=== PATIENT | male | born 1965 | race Caucasian/White ===

== ENCOUNTER 2020-07-15 12:00 | Emergency (ER) | payer SELFPAY ==
--- NOTE | 2020-07-15 12:44 | EDM.PDOC ---
ED HPI GENERAL MEDICAL PROBLEM - General Chief Complaint: Chest Pain Stated Complaint: CHEST PAIN Time Seen by Provider: 07/15/20 12:41 - History of Present Illness INITIAL COMMENTS - FREE TEXT/NARRATIVE: 55-year-old male presents the emergency room with chest pain. This pain is been going on and off for last 2 weeks. Is usually brought on by smoking. Today he was walking in [place] and noticed the pain coming back. At this time he has some mild chest pressure. Really no pain. Patient does not have a history of coronary artery disease. He is hypertensive initially when he arrives here and he has a strong smoking history. 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 The patient is unaware of his family history. The patient does smoke he is overweight. No history of diabetes he is never been diagnosed with hypertension or hyperlipidemia. Treatments MANAGER SOCIAL RESPONSIBILITY: Reports: Other (see below) Other Treatments MANAGER SOCIAL RESPONSIBILITY: asa Chest Pain Score (Numeric/FACES): 6 - Related Data Allergies Allergy/AdvReac Type Severity Reaction Status Date / Time No Known Allergies Allergy Verified 07/15/20 12:14 Home Meds: Home Meds Aspirin [Ecotrin EC] 162 mg PO DAILY 07/15/20 [History] Ibuprofen [Advil] 600 mg PO DAILY 07/15/20 [History] Nitroglycerin [Nitrostat] 0.4 mg SL ASDIRECTED PRN #1 bottle 07/15/20 [Rx] Past Medical History Musculoskeletal History: Reports: Arthritis, Back Pain, Chronic - Past Surgical History GI Surgical History: Reports: Appendectomy Social & Family History - Tobacco Use Tobacco Use Status *Q: Current Every Day Tobacco User Years of Tobacco use: 30 Packs/Tins Daily: 1 - Caffeine Use Caffeine Use: Reports: Coffee, Soda - Recreational Drug Use Recreational Drug Use: No ED ROS GENERAL - Review of Systems Review Of Systems: See Below Constitutional: Reports: No Symptoms HEENT: Reports: No Symptoms Respiratory: Reports: No Symptoms Cardiovascular: Reports: Chest Pain (Discomfort and pressure brought on with exertion). Denies: Dyspnea on Exertion, Edema GI/Abdominal: Reports: No Symptoms Musculoskeletal: Reports: No Symptoms Skin: Reports: No Symptoms ED EXAM, GENERAL - Physical Exam Exam: See Below Exam Limited By: No Limitations General Appearance: Alert, No Apparent Distress Head: Atraumatic, Normocephalic Neck: Normal Inspection, Supple, Non-Tender, Full Range of Motion Respiratory/Chest: No Respiratory Distress, Lungs Clear, Normal Breath Sounds Cardiovascular: Regular Rate, Rhythm, No Edema, No Murmur GI/Abdominal: Normal Bowel Sounds, Soft, Non-Tender, Other (He has abdominal obesity) Back Exam: Normal Inspection. No: CVA Tenderness (L), CVA Tenderness (R) Extremities: Normal Inspection, Non-Tender, No Pedal Edema Neurological: Alert, Oriented, Normal Cognition #1 Interpretation EKG Date: 07/15/20 Rhythm: NSR Rate (Beats/Min): 81 [place]: Normal QRS: Other (Late transition possible Q waves in lead III this could be artifact) ST-T: Normal (Artifact changes in the inferior leads otherwise unremarkable) QT: Normal Comparison: NA - No Prior EKG EKG Interpretation Comments: Abnormal EKG Course - Vital Signs Last Recorded V/S: Last Vital Signs Temp 36.3 C 07/15/20 12:13 Pulse 82 07/15/20 12:13 Resp 20 07/15/20 12:13 BP 165/89 H 07/15/20 13:09 Pulse Ox 99 07/15/20 12:13 - Orders/Labs/Meds Orders: Active Orders 24 hr Category Date Time Status Chest 1V Frontal [CR] Stat Exams 07/15/20 12:59 Taken Aspirin Med 07/15/20 13:15 Active 162 mg PO DAILY Nitroglycerin [Nitrostat] Med 07/15/20 13:03 Active 0.4 mg SL Q5M PRN Medication Orders Aspirin (Aspirin) 162 mg PO DAILY [facility] Last Admin: 07/15/20 13:10 Dose: 162 mg Documented by: MADY Nitroglycerin (Nitrostat) 0.4 mg SL Q5M PRN PRN Reason: Chest Pain Last Admin: 07/15/20 13:09 Dose: 0.4 mg Documented by: MADY Labs: Laboratory Tests 07/15/20 07/15/20 07/15/20 Range/Units 12:15 12:15 12:15 WBC 8.67 (4.23-9.07) K/mm3 RBC 5.16 (4.63-6.08) M/mm3 Hgb 16.5 (13.7-17.5) gm/dl Hct 48.7 (40.1-51.0) % MCV 94.4 H (79.0-92.2) fl MCH 32.0 (25.7-32.2) pg MCHC 33.9 (32.2-35.5) g/dl RDW Std Deviation 44.6 H (35.1-43.9) fL Plt Count 305 (163-337) K/mm3 MPV 9.9 (9.4-12.3) fl Neut % (Auto) 42.3 (34.0-67.9) % Lymph % (Auto) 40.7 (21.8-53.1) % Cherry % (Auto) 13.5 H (5.3-12.2) % Eos % (Auto) 3.1 (0.8-7.0) Baso % (Auto) 0.3 (0.1-1.2) % Neut # (Auto) 3.66 (1.78-5.38) K/mm3 Lymph # (Auto) 3.53 (1.32-3.57) K/mm3 Cherry # (Auto) 1.17 H (0.30-0.82) K/mm3 Eos # (Auto) 0.27 (0.04-0.54) K/mm3 Baso # (Auto) 0.03 (0.01-0.08) K/mm3 PT 10.9 (9.7-11.7) SECONDS INR 1.02 APTT 26 (22-31) SECONDS D-Dimer, Quantitative (0.19-0.50) mg/L Sodium 141 (136-145) mEq/L Potassium 4.1 (3.5-5.1) mEq/L Chloride 102 (98-107) mEq/L Carbon Dioxide 27 (21-32) mEq/L Anion Gap 16.1 H (5-15) BUN 13 (7-18) mg/dL Creatinine 1.1 (0.7-1.3) mg/dL Est Cr Clr Drug Dosing 75.88 mL/min Estimated GFR (MDRD) > 60 (>60) mL/min BUN/Creatinine Ratio 11.8 L (14-18) Glucose 96 (74-106) mg/dL Calcium 9.2 (8.5-10.1) mg/dL Total Bilirubin 0.5 (0.2-1.0) mg/dL AST 64 H (15-37) U/L ALT 118 H (16-63) U/L Alkaline Phosphatase 73 (46-116) U/L Troponin I < 0.017 (0.00-0.056) ng/mL Total Protein 8.3 H (6.4-8.2) g/dl Albumin 4.3 (3.4-5.0) g/dl Globulin 4.0 gm/dL Albumin/Globulin Ratio 1.1 (1-2) 07/15/20 Range/Units 12:15 WBC (4.23-9.07) K/mm3 RBC (4.63-6.08) M/mm3 Hgb (13.7-17.5) gm/dl Hct (40.1-51.0) % MCV (79.0-92.2) fl MCH (25.7-32.2) pg MCHC (32.2-35.5) g/dl RDW Std Deviation (35.1-43.9) fL Plt Count (163-337) K/mm3 MPV (9.4-12.3) fl Neut % (Auto) (34.0-67.9) % Lymph % (Auto) (21.8-53.1) % Cherry % (Auto) (5.3-12.2) % Eos % (Auto) (0.8-7.0) Baso % (Auto) (0.1-1.2) % Neut # (Auto) (1.78-5.38) K/mm3 Lymph # (Auto) (1.32-3.57) K/mm3 Cherry # (Auto) (0.30-0.82) K/mm3 Eos # (Auto) (0.04-0.54) K/mm3 Baso # (Auto) (0.01-0.08) K/mm3 PT (9.7-11.7) SECONDS INR APTT (22-31) SECONDS D-Dimer, Quantitative 0.43 (0.19-0.50) mg/L Sodium (136-145) mEq/L Potassium (3.5-5.1) mEq/L Chloride (98-107) mEq/L Carbon Dioxide (21-32) mEq/L Anion Gap (5-15) BUN (7-18) mg/dL Creatinine (0.7-1.3) mg/dL Est Cr Clr Drug Dosing mL/min Estimated GFR (MDRD) (>60) mL/min BUN/Creatinine Ratio (14-18) Glucose (74-106) mg/dL Calcium (8.5-10.1) mg/dL Total Bilirubin (0.2-1.0) mg/dL AST (15-37) U/L ALT (16-63) U/L Alkaline Phosphatase (46-116) U/L Troponin I (0.00-0.056) ng/mL Total Protein (6.4-8.2) g/dl Albumin (3.4-5.0) g/dl Globulin gm/dL Albumin/Globulin Ratio (1-2) Meds: Medications Generic Name Dose Route Start Last Admin Trade Name Freq PRN Reason Stop Dose Admin Aspirin 162 mg 07/15/20 13:15 07/15/20 13:10 Aspirin PO 162 mg DAILY [facility] Administration Nitroglycerin 0.4 mg 07/15/20 13:03 07/15/20 13:09 Nitrostat SL 0.4 mg Q5M PRN Administration Chest Pain Discontinued Medications Generic Name Dose Route Start Last Admin Trade Name Freq PRN Reason Stop Dose Admin Aspirin 162 mg 07/16/20 13:01 Aspirin PO 07/16/20 13:02 ONETIME ONE - Re-Assessments/Exams Free Text/Narrative Re-Assessment/Exam: 07/15/20 14:41 The patients chest pressure went away after a single nitro. Discussed the pros and cons of admission and the patient would like to go home. And I believe this is reasonable we will send him home have him continue a baby aspirin a day and start him on sublingual nitro as needed he will be scheduled for a outpatient stress test. The patient is urged to quit smoking. The patient is urged to follow-up in the clinic to get treatment for his blood pressure if indicated and be tested for glycemic abnormalities and hyperlipidemia. He will need to go to the clinic to get the results of the stress test. Departure - Departure Time of Disposition: 14:42 Disposition: Home, Self-Care 01 Clinical Impression: Angina pectoris, Chest pain Referrals: PCP,None [Primary Care Provider] - Forms: ED Department Discharge Additional Instructions: Return to the emergency room with any questions problems or worsening symptoms. You have been prescribed sublingual nitroglycerin. This is to be used for chest pain or chest pressure. You can take up to 3 doses every 5 minutes, 1 sublingual tablet every 5 minutes. If 3 doses did not alleviate your symptoms return to the emergency room immediately. I have put in an order for a outpatient stress test. They will call you to arrange this. It is essential that you get this test done. You will need to follow-up in the clinic for to get the results of this. I would like for you to follow-up in the clinic early this week for recheck anyway. The phone number is [phone] Sepsis Event Note (ED) - Evaluation Sepsis Screening Result: No Definite Risk - Focused Exam Vital Signs: Vital Signs Temp Pulse Resp BP BP Pulse Ox 07/15/20 13:09 165/89 H 07/15/20 12:13 36.3 C 82 20 189/112 H 99 - My Orders Last 24 Hours: My Active Orders 07/15/20 12:59 Chest 1V Frontal [CR] Stat 07/15/20 13:03 Nitroglycerin [Nitrostat] 0.4 mg SL Q5M PRN 07/15/20 13:15 Aspirin 162 mg PO DAILY - Assessment/Plan Last 24 Hours: My Active Orders 07/15/20 12:59 Chest 1V Frontal [CR] Stat 07/15/20 13:03 Nitroglycerin [Nitrostat] 0.4 mg SL Q5M PRN 07/15/20 13:15 Aspirin 162 mg PO DAILY
[2020-07-15] MEDS ORDERED: Nitroglycerin 0.4 MG Tab.SL SL PRN (13:03)
[2020-07-15] MEDS ORDERED: Aspirin 81 MG Tab.Chew PO SCH (13:15)
[2020-07-16] MEDS ORDERED: Aspirin 81 MG Tab.Chew PO ONE (13:01)
== END 2020-07-15 15:15 | disposition home or self-care (01) ==
LOC: JD.ED 12:00
DX: I20.9 Angina pectoris, unspecified (principal); M19.90 Unspecified osteoarthritis, unspecified site; F17.210 Nicotine dependence, cigarettes, uncomplicated; Z79.82 Long term (current) use of aspirin
CPT/HCPCS: 36415; 71045; 80053; 84484; 85025; 85379; 85610; 85730; 99285; A9270; 93010; 99284

== ENCOUNTER 2025-05-28 09:20 | Inpatient (IN) | payer MEDICAID ==
[2025-05-28 09:58] LABS: BASOPHILS ABSOLUTE AUTO 0.1 K/mm3 (0.0-0.2); BASOPHILS PERCENT AUTO 0.6 % (0.0-1.0); EOSINOPHILS ABSOLUTE AUTO 0.2 K/mm3 (0.0-0.4); EOSINOPHILS PERCENT AUTO 2.2 % (0.0-6.0); IMMATURE GRAN ABSOLUTE AUTO 0.03 K/mm3 (0.00-0.05); IMMATURE GRAN PERCENT AUTO 0.3 % (0.0-0.4); LYMPHOCYTES ABSOLUTE AUTO 1.8 K/mm3 (1.0-4.8); LYMPHOCYTES PERCENT AUTO 20.2 % (24.0-44.0); MEAN PLATELET VOLUME 10.0 fl (9.4-12.4); MONOCYTES ABSOLUTE AUTO 1.7 K/mm3 (0.0-0.8); MONOCYTES PERCENT AUTO 19.3 % (0.0-8.0); NEUTROPHILS ABSOLUTE AUTO 5.1 K/mm3 (1.8-7.7); NEUTROPHILS PERCENT AUTO 57.4 % (41.0-71.0); NRBC ABSOLUTE 0.00 (0.00-0.02); NRBC PERCENT 0.0 % (0.0-0.2); PLATELET COUNT,PLT 177 K/mm3 (150-400); RED BLOOD CELL COUNT 3.87 M/mm3 (4.52-5.90); WHITE BLOOD CELL COUNT,WBC 8.90 K/mm3 (3.9-11.3)
[2025-05-28 10:06] LABS: INR 1.79
[2025-05-28 10:21] LABS: A/G RATIO 0.3 (1-2); ALANINE AMINOTRANSFERASE,ALT 66.0 U/L (16-63); ASPARTATE AMNIOTRANSFERASE,AST 180.0 U/L (15-37); BILIRUBIN TOTAL 13.2 mg/dL (0.2-1.0); BLOOD UREA NITROGEN,BUN 9.0 mg/dL (7-18); CARBON DIOXIDE,CO2 32.0 mEq/L (21-32); CHLORIDE,CL 95.0 mEq/L (98-107); CREATINE KINASE,CK 102.0 U/L (39-308); EST CRCL DRUG DOSING (CG) 63.33 mL/min; ESTIMATED GFR 69.0 mL/min (>60); GAMMA GLUTAMYL TRANSFERASE,GGT 94.0 U/L (15-85); GLUCOSE RANDOM 96.0 mg/dL (70-99); SODIUM,NA 133.0 mEq/L (136-145); TROPONIN I HIGH SENSITIVITY 19.0 pg/mL (<=76)
[2025-05-28 10:23] LABS: BILIRUBIN DIRECT 8.7 mg/dl (0.0-0.2); CREATININE 1.2 mg/dL (0.7-1.3); POTASSIUM,K 2.7 mEq/L (3.5-5.1); PROTEIN TOTAL,TP 8.0 g/dl (6.4-8.2)
[2025-05-28 10:24] LABS: PRO B-TYPE NATRIUR PEPT,BNPPRO 183 pg/mL (0-125)
[2025-05-28 10:33] LABS: HEPATITIS C AB NON-REACTIVE (Non-React); HIV RAPID SCREEN RLFX COMFIRM NON-REACTIVE (Non-React)
[2025-05-28] MEDS: Magnesium Sulf/Wat 4 GM/50 mL 4 GM in Premix Bag 1 BAG IV ONE (10:47)
[2025-05-28] MEDS: Iopamidol 755 Mg/ML 100 ML Bottle IVPUSH ONE (10:54)
[2025-05-28] MEDS: Sodium Chloride 0.9% 10 ML Syringe FLUSH ONE (10:54)
[2025-05-28] MEDS: Potassium Chloride 20 MEQ Tab.ER PO ONE ×2 (15:10→20:03)
[2025-05-28 15:12] LABS: APPEARANCE,URINE SLT CLOUDY (Clear); GLUCOSE,URINE TRACE (Negative); OCCULT BLOOD,URINE NEGATIVE (Negative)
[2025-05-28 15:22] LABS: BUPRENORPHINE SCREEN,URINE NEGATIVE (CUTOFF=10); EPITHELIAL CELLS,URINE 0-5 /hpf (0-5); METHADONE SCREEN, URINE NEGATIVE (CUT0FF=200); METHAMPHETAMINES SCREEN, URINE NEGATIVE (CUTOFF=500); OXYCODONE SCREEN,URINE NEGATIVE (CUT0FF=100); THC SCREEN,URINE 20 NG/ML NEGATIVE (CUTOFF=50)
[2025-05-28 15:24] LABS: AMPHETAMINES SCREEN, URINE NEGATIVE (CUTOFF=500)
[2025-05-29 02:41] LABS: BASOPHILS ABSOLUTE AUTO 0.1 K/mm3 (0.0-0.2); BASOPHILS PERCENT AUTO 0.6 % (0.0-1.0); EOSINOPHILS ABSOLUTE AUTO 0.2 K/mm3 (0.0-0.4); EOSINOPHILS PERCENT AUTO 2.4 % (0.0-6.0); IMMATURE GRAN ABSOLUTE AUTO 0.02 K/mm3 (0.00-0.05); IMMATURE GRAN PERCENT AUTO 0.2 % (0.0-0.4); LYMPHOCYTES ABSOLUTE AUTO 1.9 K/mm3 (1.0-4.8); LYMPHOCYTES PERCENT AUTO 21.6 % (24.0-44.0); MEAN PLATELET VOLUME 10.0 fl (9.4-12.4); MONOCYTES ABSOLUTE AUTO 1.5 K/mm3 (0.0-0.8); MONOCYTES PERCENT AUTO 17.0 % (0.0-8.0); NEUTROPHILS ABSOLUTE AUTO 5.1 K/mm3 (1.8-7.7); NEUTROPHILS PERCENT AUTO 58.2 % (41.0-71.0); NRBC ABSOLUTE 0.00 (0.00-0.02); NRBC PERCENT 0.0 % (0.0-0.2); PLATELET COUNT,PLT 144 K/mm3 (150-400); RED BLOOD CELL COUNT 3.37 M/mm3 (4.52-5.90); WHITE BLOOD CELL COUNT,WBC 8.76 K/mm3 (3.9-11.3)
[2025-05-29 03:01] LABS: A/G RATIO 0.3 (1-2); ALANINE AMINOTRANSFERASE,ALT 51.0 U/L (16-63); ASPARTATE AMNIOTRANSFERASE,AST 142.0 U/L (15-37); BILIRUBIN TOTAL 11.8 mg/dL (0.2-1.0); BLOOD UREA NITROGEN,BUN 10.0 mg/dL (7-18); CARBON DIOXIDE,CO2 28.0 mEq/L (21-32); CHLORIDE,CL 98.0 mEq/L (98-107); EST CRCL DRUG DOSING (CG) 63.33 mL/min; ESTIMATED GFR 69.0 mL/min (>60); GLUCOSE RANDOM 91.0 mg/dL (70-99); SODIUM,NA 132.0 mEq/L (136-145)
[2025-05-29 03:08] LABS: CREATININE 1.2 mg/dL (0.7-1.3); POTASSIUM,K 3.1 mEq/L (3.5-5.1); PROTEIN TOTAL,TP 6.8 g/dl (6.4-8.2)
[2025-05-29] MEDS: Magnesium Sulf/Wat 4 GM/50 mL 4 GM in Premix Bag 1 BAG IV ONE (08:43)
[2025-05-29] MEDS: Potassium Chloride 20 MEQ Tab.ER PO ONE (08:43)
[2025-05-30 04:39] LABS: A/G RATIO 0.3 (1-2); ALANINE AMINOTRANSFERASE,ALT 52.0 U/L (16-63); ASPARTATE AMNIOTRANSFERASE,AST 126.0 U/L (15-37); BILIRUBIN TOTAL 9.9 mg/dL (0.2-1.0); BLOOD UREA NITROGEN,BUN 10.0 mg/dL (7-18); CARBON DIOXIDE,CO2 28.0 mEq/L (21-32); CHLORIDE,CL 97.0 mEq/L (98-107); EST CRCL DRUG DOSING (CG) 69.09 mL/min; ESTIMATED GFR 77.0 mL/min (>60); GLUCOSE RANDOM 98.0 mg/dL (70-99); SODIUM,NA 132.0 mEq/L (136-145)
[2025-05-30 04:43] LABS: BASOPHILS ABSOLUTE AUTO 0.1 K/mm3 (0.0-0.2); BASOPHILS PERCENT AUTO 0.6 % (0.0-1.0); EOSINOPHILS ABSOLUTE AUTO 0.3 K/mm3 (0.0-0.4); EOSINOPHILS PERCENT AUTO 3.4 % (0.0-6.0); IMMATURE GRAN ABSOLUTE AUTO 0.04 K/mm3 (0.00-0.05); IMMATURE GRAN PERCENT AUTO 0.4 % (0.0-0.4); LYMPHOCYTES ABSOLUTE AUTO 1.9 K/mm3 (1.0-4.8); LYMPHOCYTES PERCENT AUTO 20.5 % (24.0-44.0); MEAN PLATELET VOLUME 9.8 fl (9.4-12.4); MONOCYTES ABSOLUTE AUTO 1.6 K/mm3 (0.0-0.8); MONOCYTES PERCENT AUTO 17.4 % (0.0-8.0); NEUTROPHILS ABSOLUTE AUTO 5.2 K/mm3 (1.8-7.7); NEUTROPHILS PERCENT AUTO 57.7 % (41.0-71.0); NRBC ABSOLUTE 0.00 (0.00-0.02); NRBC PERCENT 0.0 % (0.0-0.2); PLATELET COUNT,PLT 146 K/mm3 (150-400); RED BLOOD CELL COUNT 3.42 M/mm3 (4.52-5.90); WHITE BLOOD CELL COUNT,WBC 9.01 K/mm3 (3.9-11.3)
[2025-05-30 04:46] LABS: CREATININE 1.1 mg/dL (0.7-1.3); POTASSIUM,K 2.9 mEq/L (3.5-5.1); PROTEIN TOTAL,TP 7.1 g/dl (6.4-8.2)
[2025-05-30] MEDS ORDERED: Potassium Chloride 20 MEQ Tab.ER PO SCH (09:00)
[2025-05-30] MEDS: Magnesium Sulf/Wat 4 GM/50 mL 4 GM in Premix Bag 1 BAG IV ONE (09:28)
[2025-05-30] MEDS: Potassium Bicarbonate/Cit Ac 20 MEQ Effervescent Tab PO SCH (09:38)
[2025-05-30 13:25] LABS: BODY FLUID TYPE PERITONEAL FLUID
[2025-05-30] MEDS: Ondansetron 4 MG Tab.DIS PO PRN (13:57)
[2025-05-30 14:09] LABS: APPEARANCE,BODY FLUID SLIGHTLY CLOUDY; COLOR,BODY FLUID YELLOW; SITE,BODY FLUID PERITONEAL; VOLUME BODY FLUID 5.5 ML
[2025-05-30 14:10] LABS: WBC BODY FLUID 160 /uL (0-0)
[2025-05-30 14:13] LABS: MONONUCLEAR, BODY FLUID 92.0 % (0.0-0.0); POLYMORPHONUCLEAR, BODY FLUID 8.0 % (0.0-0.0)
[2025-05-30 15:46] LABS: GLUCOSE,BODY FLUID 136 mg/dL
[2025-05-30 15:48] LABS: PROTEIN,BODY FLUID < 2.0 gm/dl
[2025-05-31 05:04] LABS: A/G RATIO 0.5 (1-2); ALANINE AMINOTRANSFERASE,ALT 45.0 U/L (16-63); BILIRUBIN TOTAL 9.6 mg/dL (0.2-1.0); BLOOD UREA NITROGEN,BUN 9.0 mg/dL (7-18); CARBON DIOXIDE,CO2 29.0 mEq/L (21-32); CHLORIDE,CL 100.0 mEq/L (98-107); EST CRCL DRUG DOSING (CG) 76.0 mL/min; ESTIMATED GFR 86.0 mL/min (>60); GLUCOSE RANDOM 100.0 mg/dL (70-99); SODIUM,NA 134.0 mEq/L (136-145)
[2025-05-31 05:29] LABS: CREATININE 1.0 mg/dL (0.7-1.3); POTASSIUM,K 3.4 mEq/L (3.5-5.1)
[2025-05-31 05:30] LABS: ASPARTATE AMNIOTRANSFERASE,AST 115.0 U/L (15-37); PROTEIN TOTAL,TP 6.4 g/dl (6.4-8.2)
[2025-05-31 05:33] LABS: BASOPHILS ABSOLUTE AUTO 0.1 K/mm3 (0.0-0.2); BASOPHILS PERCENT AUTO 0.5 % (0.0-1.0); EOSINOPHILS ABSOLUTE AUTO 0.3 K/mm3 (0.0-0.4); EOSINOPHILS PERCENT AUTO 2.8 % (0.0-6.0); IMMATURE GRAN ABSOLUTE AUTO 0.03 K/mm3 (0.00-0.05); IMMATURE GRAN PERCENT AUTO 0.3 % (0.0-0.4); LYMPHOCYTES ABSOLUTE AUTO 2.1 K/mm3 (1.0-4.8); LYMPHOCYTES PERCENT AUTO 20.7 % (24.0-44.0); MEAN PLATELET VOLUME 9.8 fl (9.4-12.4); MONOCYTES ABSOLUTE AUTO 1.8 K/mm3 (0.0-0.8); MONOCYTES PERCENT AUTO 17.6 % (0.0-8.0); NEUTROPHILS ABSOLUTE AUTO 5.8 K/mm3 (1.8-7.7); NEUTROPHILS PERCENT AUTO 58.1 % (41.0-71.0); NRBC ABSOLUTE 0.00 (0.00-0.02); NRBC PERCENT 0.0 % (0.0-0.2); PLATELET COUNT,PLT 120 K/mm3 (150-400); RED BLOOD CELL COUNT 3.37 M/mm3 (4.52-5.90); WHITE BLOOD CELL COUNT,WBC 9.98 K/mm3 (3.9-11.3)
[2025-05-31 08:47] LABS: HBS AB <3.10 IU/L
[2025-05-31] MEDS: Potassium Chloride 20 MEQ Tab.ER PO ONE ×2 (09:22→09:30)
[2025-05-31 09:47] LABS: HAV AB IGM Negative (Negative); HBC IGM Negative (Negative); HBE AB Negative (Negative); HEP B SURFACE AG Negative (Negative); HEP B SURG AG Negative (Negative); HEP C AB BY CIA Negative (Negative); HEP C AB BY CIA INDEX 0.22 IV; HEPATITIS BE ANTIGEN Negative (Negative)
== END 2025-05-31 13:26 | disposition home or self-care (01) | DRG 433 ==
LOC: JD.ED 09:20 → JD.MS 15:05
PROVIDERS: ADMIT Family Medicine; ATTEND Student in an Organized Health Care Education/Training Program
PROC: 0W9G3ZZ Drainage of Peritoneal Cavity, Percutaneous Approach (ICD-10-PCS; principal; 2025-05-28)
DX: K70.31 Alcoholic cirrhosis of liver with ascites (principal); D68.9 Coagulation defect, unspecified; K76.6 Portal hypertension; E46 Unspecified protein-calorie malnutrition; E87.20 Acidosis, unspecified; Z66 Do not resuscitate; R74.01 Elevation of levels of liver transaminase levels; E80.6 Other disorders of bilirubin metabolism; E86.0 Dehydration; E87.6 Hypokalemia; M19.90 Unspecified osteoarthritis, unspecified site; M54.9 Dorsalgia, unspecified; E83.42 Hypomagnesemia; G89.29 Other chronic pain; I25.10 Atherosclerotic heart disease of native coronary artery without angina pectoris; Z95.5 Presence of coronary angioplasty implant and graft; Z79.82 Long term (current) use of aspirin; Z79.899 Other long term (current) drug therapy; Z90.49 Acquired absence of other specified parts of digestive tract; Z68.35 Body mass index [BMI] 35.0-35.9, adult; Z87.891 Personal history of nicotine dependence
CPT/HCPCS: 36415; 74177; 74177-26; 80053; 80074; 80306; 80307; 81001; 82140; 82248; 82550; 82945; 82977; 83605; 83690; 83735; 83880; 84100; 84132; 84157; 84484; 85025; 85384; 85610; 86706; 86707; 86803; 87040; 87070; 87075; 87077; 87186; 87205; 87340; 87350; 89050; 93005; 93010; 96365; 96366; 96367; 96376; 97116-GP; 97161-GP; 99285; 99285-25; A9270-GY; G0433; J2765; J3475; J3480; J7030; P9047; Q9967

== ENCOUNTER 2025-06-03 10:02 | Emergency (ER) | payer MEDICAID ==
[2025-06-03 10:51] LABS: BASOPHILS ABSOLUTE AUTO 0.1 K/mm3 (0.0-0.2); BASOPHILS PERCENT AUTO 0.6 % (0.0-1.0); EOSINOPHILS ABSOLUTE AUTO 0.4 K/mm3 (0.0-0.4); EOSINOPHILS PERCENT AUTO 3.0 % (0.0-6.0); IMMATURE GRAN ABSOLUTE AUTO 0.05 K/mm3 (0.00-0.05); IMMATURE GRAN PERCENT AUTO 0.4 % (0.0-0.4); LYMPHOCYTES ABSOLUTE AUTO 2.1 K/mm3 (1.0-4.8); LYMPHOCYTES PERCENT AUTO 17.7 % (24.0-44.0); MEAN PLATELET VOLUME 9.7 fl (9.4-12.4); MONOCYTES ABSOLUTE AUTO 1.7 K/mm3 (0.0-0.8); MONOCYTES PERCENT AUTO 14.9 % (0.0-8.0); NEUTROPHILS ABSOLUTE AUTO 7.4 K/mm3 (1.8-7.7); NEUTROPHILS PERCENT AUTO 63.4 % (41.0-71.0); NRBC ABSOLUTE 0.00 (0.00-0.02); NRBC PERCENT 0.0 % (0.0-0.2); PLATELET COUNT,PLT 178 K/mm3 (150-400); RED BLOOD CELL COUNT 4.01 M/mm3 (4.52-5.90); WHITE BLOOD CELL COUNT,WBC 11.65 K/mm3 (3.9-11.3)
[2025-06-03 11:00] LABS: A/G RATIO 0.4 (1-2); ALANINE AMINOTRANSFERASE,ALT 58.0 U/L (16-63); ASPARTATE AMNIOTRANSFERASE,AST 129.0 U/L (15-37); BILIRUBIN TOTAL 11.2 mg/dL (0.2-1.0); BLOOD UREA NITROGEN,BUN 11.0 mg/dL (7-18); CARBON DIOXIDE,CO2 30.0 mEq/L (21-32); CHLORIDE,CL 99.0 mEq/L (98-107); CREATINE KINASE,CK 80.0 U/L (39-308); EST CRCL DRUG DOSING (CG) 54.29 mL/min; ESTIMATED GFR 58.0 mL/min (>60); GLUCOSE RANDOM 117.0 mg/dL (70-99); SODIUM,NA 134.0 mEq/L (136-145)
[2025-06-03 11:07] LABS: CREATININE 1.4 mg/dL (0.7-1.3); ETHANOL BLOOD MEDICAL 0.0 gm% (0.00); POTASSIUM,K 4.3 mEq/L (3.5-5.1); PROTEIN TOTAL,TP 7.4 g/dl (6.4-8.2)
[2025-06-03] MEDS: Iopamidol 612 MG/ML 100 ML Bottle IVPUSH ONE (12:16)
[2025-06-03] MEDS: Magnesium Sulf/Wat 4 GM/50 mL 4 GM in Premix Bag 1 BAG IV ONE (12:50)
[2025-06-03] MEDS: Sodium Chloride 0.9% 10 ML Syringe FLUSH ONE (14:02)
== END 2025-06-03 16:46 | disposition home or self-care (01) ==
LOC: JD.ED 10:02
DX: K70.30 Alcoholic cirrhosis of liver without ascites (principal); R17 Unspecified jaundice; N28.9 Disorder of kidney and ureter, unspecified; I25.2 Old myocardial infarction; I25.10 Atherosclerotic heart disease of native coronary artery without angina pectoris; Z79.82 Long term (current) use of aspirin; Z79.899 Other long term (current) drug therapy
CPT/HCPCS: 36415; 74177; 74177-26; 80053; 80307; 82140; 82550; 83690; 83735; 85025; 93971-26-RT; 93971-RT; 96365; 96366; 99284; 99284-25; A9270-GY; J3475; J7030; Q9967

== ENCOUNTER 2025-08-31 08:08 | Emergency (ER) | payer MEDICAID ==
[2025-08-31] MEDS ORDERED: Sodium Chloride 0.9% 10 ML Syringe FLUSH PRN (08:41)
[2025-08-31 09:01] LABS: BASOPHILS ABSOLUTE AUTO 0.1 K/mm3 (0.0-0.2); BASOPHILS PERCENT AUTO 1.6 % (0.0-1.0); EOSINOPHILS ABSOLUTE AUTO 0.1 K/mm3 (0.0-0.4); EOSINOPHILS PERCENT AUTO 1.0 % (0.0-6.0); IMMATURE GRAN ABSOLUTE AUTO 0.01 K/mm3 (0.00-0.05); IMMATURE GRAN PERCENT AUTO 0.1 % (0.0-0.4); LYMPHOCYTES ABSOLUTE AUTO 2.5 K/mm3 (1.0-4.8); LYMPHOCYTES PERCENT AUTO 35.9 % (24.0-44.0); MEAN PLATELET VOLUME 9.9 fl (9.4-12.4); MONOCYTES ABSOLUTE AUTO 0.9 K/mm3 (0.0-0.8); MONOCYTES PERCENT AUTO 13.0 % (0.0-8.0); NEUTROPHILS ABSOLUTE AUTO 3.3 K/mm3 (1.8-7.7); NEUTROPHILS PERCENT AUTO 48.4 % (41.0-71.0); NRBC ABSOLUTE 0.00 (0.00-0.02); NRBC PERCENT 0.0 % (0.0-0.2); RED BLOOD CELL COUNT 3.79 M/mm3 (4.52-5.90); WHITE BLOOD CELL COUNT,WBC 6.83 K/mm3 (3.9-11.3)
[2025-08-31 09:05] LABS: A/G RATIO 0.5 (1-2); ALANINE AMINOTRANSFERASE,ALT 46.0 U/L (16-63); ASPARTATE AMNIOTRANSFERASE,AST 138.0 U/L (15-37); BILIRUBIN TOTAL 6.4 mg/dL (0.2-1.0); BLOOD UREA NITROGEN,BUN 7.0 mg/dL (7-18); CARBON DIOXIDE,CO2 24.0 mEq/L (21-32); CHLORIDE,CL 102.0 mEq/L (98-107); EST CRCL DRUG DOSING (CG) 65.46 mL/min; ESTIMATED GFR 69.0 mL/min (>60); GLUCOSE RANDOM 98.0 mg/dL (70-99); POTASSIUM,K 3.5 mEq/L (3.5-5.1); SODIUM,NA 139.0 mEq/L (136-145)
[2025-08-31 09:06] LABS: CREATININE 1.2 mg/dL (0.7-1.3); PLATELET COUNT,PLT 134 K/mm3 (150-400); PROTEIN TOTAL,TP 7.6 g/dl (6.4-8.2)
[2025-08-31 09:15] LABS: LACTIC ACID 4.8 mmol/L (0.4-2.0)
[2025-08-31] MEDS: Iopamidol 612 MG/ML 100 ML Bottle IVPUSH ONE (10:36)
[2025-08-31] MEDS: Sodium Chloride 0.9% 10 ML Syringe FLUSH ONE (10:37)
[2025-08-31 14:19] LABS: APPEARANCE,URINE SLT CLOUDY (Clear); GLUCOSE,URINE NEGATIVE (Negative); OCCULT BLOOD,URINE NEGATIVE (Negative)
[2025-08-31] MEDS: Furosemide 40 MG/4 ML VIAL IVPUSH SCH (15:48)
== END 2025-08-31 18:40 | disposition home or self-care (01) ==
LOC: JD.ED 08:08
DX: R18.8 Other ascites (principal); E87.20 Acidosis, unspecified; E86.9 Volume depletion, unspecified; E88.09 Other disorders of plasma-protein metabolism, not elsewhere classified; I25.10 Atherosclerotic heart disease of native coronary artery without angina pectoris; I25.2 Old myocardial infarction; M19.90 Unspecified osteoarthritis, unspecified site; Z79.899 Other long term (current) drug therapy; Z90.49 Acquired absence of other specified parts of digestive tract
CPT/HCPCS: 36415; 49083; 74177; 80053; 81001; 83605; 83735; 84484; 85025; 93005; 96365; 96375; 99284; J1938; P9047; Q9967; 93010

== ENCOUNTER 2025-09-08 12:49 | Emergency (ER) | payer MEDICAID ==
[2025-09-08] MEDS ORDERED: Sodium Chloride 0.9% 10 ML Syringe FLUSH PRN (13:48)
[2025-09-08 14:25] LABS: BASOPHILS ABSOLUTE AUTO 0.0 K/mm3 (0.0-0.2); BASOPHILS PERCENT AUTO 0.3 % (0.0-1.0); EOSINOPHILS ABSOLUTE AUTO 0.0 K/mm3 (0.0-0.4); EOSINOPHILS PERCENT AUTO 0.3 % (0.0-6.0); IMMATURE GRAN ABSOLUTE AUTO 0.03 K/mm3 (0.00-0.05); IMMATURE GRAN PERCENT AUTO 0.3 % (0.0-0.4); LYMPHOCYTES ABSOLUTE AUTO 1.4 K/mm3 (1.0-4.8); LYMPHOCYTES PERCENT AUTO 15.7 % (24.0-44.0); MEAN PLATELET VOLUME 9.6 fl (9.4-12.4); MONOCYTES ABSOLUTE AUTO 1.2 K/mm3 (0.0-0.8); MONOCYTES PERCENT AUTO 14.0 % (0.0-8.0); NEUTROPHILS ABSOLUTE AUTO 6.2 K/mm3 (1.8-7.7); NEUTROPHILS PERCENT AUTO 69.4 % (41.0-71.0); NRBC ABSOLUTE 0.00 (0.00-0.02); NRBC PERCENT 0.0 % (0.0-0.2); PLATELET COUNT,PLT 78 K/mm3 (150-400); RED BLOOD CELL COUNT 3.28 M/mm3 (4.52-5.90); WHITE BLOOD CELL COUNT,WBC 8.88 K/mm3 (3.9-11.3)
[2025-09-08 14:47] LABS: A/G RATIO 0.5 (1-2); ALANINE AMINOTRANSFERASE,ALT 58.0 U/L (16-63); ASPARTATE AMNIOTRANSFERASE,AST 172.0 U/L (15-37); BILIRUBIN TOTAL 14.0 mg/dL (0.2-1.0); BLOOD UREA NITROGEN,BUN 38.0 mg/dL (7-18); CARBON DIOXIDE,CO2 23.0 mEq/L (21-32); CHLORIDE,CL 93.0 mEq/L (98-107); CREATININE 6.2 mg/dL (0.7-1.3); EST CRCL DRUG DOSING (CG) 12.67 mL/min; ESTIMATED GFR 10.0 mL/min (>60); GLUCOSE RANDOM 85.0 mg/dL (70-99); PHOSPHORUS 4.8 mg/dL (2.6-4.7); POTASSIUM,K 4.0 mEq/L (3.5-5.1); PROTEIN TOTAL,TP 7.2 g/dl (6.4-8.2); SODIUM,NA 132.0 mEq/L (136-145)
[2025-09-08 15:00] LABS: LACTIC ACID 3.9 mmol/L (0.4-2.0)
[2025-09-08] MEDS: Magnesium Sulfat/D5W 1GM/100ML 1 GM in Premix Bag 1 BAG IV ONE (16:45)
== END 2025-09-08 17:04 ==
LOC: JD.ED 12:49
DX: N17.9 Acute kidney failure, unspecified (principal); N18.6 End stage renal disease; K76.7 Hepatorenal syndrome; D68.9 Coagulation defect, unspecified; M19.90 Unspecified osteoarthritis, unspecified site; Z79.82 Long term (current) use of aspirin; Z79.899 Other long term (current) drug therapy; Z90.49 Acquired absence of other specified parts of digestive tract; Z87.891 Personal history of nicotine dependence
CPT/HCPCS: 36415; 80053; 82140; 83605; 83690; 83735; 84100; 85025; 85610; 96365; 96366; 96367; 99285; A9270; J3475; P9047